=== PATIENT | male | born 2000 | race Caucasian/White ===

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

== ENCOUNTER 2023-04-22 03:44 | Outpatient (CLI) | payer MEDICAID, SELFPAY ==
[2023-04-22 16:20] LABS: TSH (W/Ref FT4) 0.65 uIU/mL (0.36-3.74)
== END 2023-04-22 03:45 | disposition home or self-care (01) ==
LOC: LBO 03:45
PROVIDERS: PCP Family Medicine; Visit Provider Family Medicine
DX: R23.2 Flushing (principal)
CPT/HCPCS: 36415; 84443